=== PATIENT | male | born 1975 | race Caucasian/White ===

== ENCOUNTER 2024-04-28 14:14 | Outpatient (REF) | payer OTHER, SELFPAY ==
[2024-04-28 17:06] LABS: C Reactive Protein < 0.10 mg/dL (< or = 0.50)
[2024-04-28 17:13] LABS: Rheumatoid Factor < 13.0 IU/mL (<15.0)
[2024-04-28 17:41] LABS: Erythrocyte Sedimentation Rate 2 MM/HR (0-15)
[2024-04-30 05:09] LABS: Lyme Abs Screen <0.90 index
[2024-05-04 08:43] LABS: Anti Nuclear Antibody Screen NEGATIVE (NEGATIVE)
== END 2024-04-28 14:15 | disposition home or self-care (01) ==
LOC: HO.HMGCLDS 14:14
PROVIDERS: PCP Internal Medicine; Visit Provider Internal Medicine
DX: M25.50 Pain in unspecified joint (principal)
CPT/HCPCS: 36415; 85652; 86038; 86140; 86431; 86617; 86618

== ENCOUNTER 2024-08-10 15:10 | Outpatient (AMB) | payer OTHER, SELFPAY ==
--- NOTE | 2024-08-10 15:12 | A.OFFVIS_ITS ---
Intake Visit Reasons: erectile dysfunction Intake Note: New Patient presents for initial visit for erectile dysfunction Urology Medications: none Blood Thinner: none Certification And Selection Specialist Required: No Accompanied by: Self / Same As Patient Allergies No Known Allergies Allergy (Verified 08/10/24 16:07) Medication List - Last Reconciled 08/10/24 by ELIZABETH Mercado No Known Home Meds HPI Comments Details: Javier Mckenzie 49-year-old male patient of Dr. Springer. He presents to the office today as a new patient for erectile dysfunction. In discussion with the patient today reports symptoms have been present for over a year however feels they are worsening. He reports following up with his PCP at which time recommendations were made for urology referral for further assessment evaluation. He reports being able to obtain morning erections possibly 1 time per month. He discusses previously trialing Viagra and felt this was helpful however has recently changed insurance and prescription was too expensive. He discusses having trialed daily dosing of Cialis through [facility] and did not find this helpful. He also does report noting episodes of urinary urgency and frequency however describes these episodes as intermittent. We discussed at length potential causes of erectile dysfunction as well as further treatment options and risks and benefits of these treatment options. He discusses also following up with Allergy and immunology for ongoing pruritus he has been experi encing and will soon be undergoing allergy testing. In office urinalysis results reviewed with the patient today. He denies any previous trauma. He does report smoking recreational marijuana from time to time. He denies incontinence, nocturia, hematuria, dysuria, foul smelling urine, changes to urinary stream, flank pain, fever, and or chills. Review of Systems Const All systems reviewed & are unremarkable except as noted in HPI and below Physical Exam Const General: cooperative, healthy appearing, comfortable, no acute distress, well developed, alert and awake Orientation/consciousness: patient oriented x3 Limitations: no limitations HEENT Head: Yes normal to inspection, Yes normocephalic and Yes atraumatic Ears: hearing grossly normal bilaterally Eyes General: appearance normal, both eyes and all related structures Neck Neck: Yes normal visual inspection and Yes trachea midline Chest Chest palpation & inspection: normal inspection of the chest Resp Effort & Inspection: normal respiratory effort and able to speak in complete sentences Cardio Rate: regular rate GI Inspection: Yes normal to inspection General: Yes no CVA tenderness Back/Spine/Pelvis Back: no CVA tenderness Skin General skin exam: no rashes or lesions noted Neuro General: patient oriented x3 Extrem General: Yes normal to inspection Psych Appearance: grossly normal and well kempt Mental Status: mental status grossly normal Speech and movement: Normal speech and movement present and Clear speech present Affect: normal affect Attitude: cooperative Thought process: Normal thought process present Thought content: Normal thought content present Insight: Fair insight present (Psych) Judgement: Fair judgement present (Psych) Results AMB Urinalysis, Automated UA Leukoctes 0 Mauricio/uL Last Edit by [employer] on 08/10/24 15:29 UA Nitrite Last Edit by [employer] on 08/10/24 15:29 UA Urobilinogen 0.2 mg/dL Last Edit by [employer] on 08/10/24 15:29 UA Protein 15 mg/dL Last Edit by [employer] on 08/10/24 15:29 UA pH 5.5 Last Edit by [employer] on 08/10/24 15:29 UA Blood 10 Angel Luis/uL Last Edit by [employer] on 08/10/24 15:29 UA Specific [place] 1.030 Last Edit by [employer] on 08/10/24 15:29 UA Ketone Last Edit by [employer] on 08/10/24 15:29 UA Bilirubin 0 mg/dL Last Edit by [employer] on 08/10/24 15:29 UA Glucose 0 mg/dL Last Edit by [employer] on 08/10/24 15:29 Results Reviewed Results Reviewed: Laboratory Last Values Urine pH (Auto) 5.5 08/10/24 15:19 Specific [place] (Auto) 1.030 08/10/24 15:19 Urine Protein (Auto) 15 mg/dL 08/10/24 15:19 Glucose (UA)(Auto) 0 mg/dL 08/10/24 15:19 Urine Blood (Auto) 10 Angel Luis/uL 08/10/24 15:19 Urine Bilirubin (Auto) 0 mg/dL 08/10/24 15:19 Urine Urobilinogen (Auto) 0.2 mg/dL 08/10/24 15:19 Leukocyte Esterase (Auto) 0 Mauricio/uL 08/10/24 15:19 Assessment & Plan Assessment & Plan (1) Erectile dysfunction: Code(s): N52.9 - Male erectile dysfunction, unspecified Category: Medical Plan In office urinalysis results reviewed with the patient today; as noted above. We discussed at length potential causes of lower urinary tract symptoms patient was experiencing as well as erectile dysfunction; we discussed further treatment options of these urological conditions in risks and benefits of these treatment options. Prescription provided for p.r.n. Viagra We discussed potential near future penile Doppler We discussed bladder triggers/irritants. Will obtain PSA, LH, testosterone, and free testosterone for further assessment evaluation. We discussed lifestyle modifications to assist with ED. We also discussed and reviewed penile pump, ring, and prosthesis. Follow-up in 1-3 months with labs to be completed prior; or sooner with any issues, concerns, and or questions. Orders: Orders AMB Urinalysis Automated Today Z13.9 - Encounter for screening, unspecified Lutenizing Hormone Today N52.9 - Male erectile dysfunction, unspecified Urine Cytology Today Z13.9 - Encounter for screening, unspecified Testosterone, Free/Total Today N52.9 - Male erectile dysfunction, unspecified Prostate Specific Antigen Today N52.9 - Male erectile dysfunction, unspecified Medications: [facility] DR33 [id number] 100 mg PO ONCE 90 days PRN 40 tabs 1RF sexual activity Patient Instructions: The patient had an opportunity to ask questions regarding the treatment plan. All questions were answered. Physical exam, labs, and imaging were discussed and reviewed in detail. As well as risks, benefits, and discussion of treatment choices. No major barriers to understanding were identified. The patient expressed understanding and agreement with the above treatment plan. The patient was made aware they should contact our office by phone for worsening of their current condition, the appearance of new symptoms, or with any questions or concerns. Compliance is encouraged with any medications and follow up testing that is ordered. It is a privilege to be allowed the opportunity to participate in? your urological care.? Again, if you have any questions or concerns If you have any questions or concerns please do not hesitate to contact me. The office is [phone]. This note is constructed using voice recognition software. While every effort has been made to ensure accuracy editing computer publisher errors may have been included. Yours sincerely, ELIZABETH Mercado Coding Level of Care Code New Pt Level 4 (42576) Diagnoses Erectile dysfunction N52.9
== END 2024-08-10 16:01 | disposition home or self-care (01) ==
PROVIDERS: PCP Internal Medicine; Visit Provider Nurse Practitioner Family
DX: N52.9 Male erectile dysfunction, unspecified (principal); Z13.9 Encounter for screening, unspecified
CPT/HCPCS: 99204

== ENCOUNTER 2024-08-10 15:10 | Outpatient (REF) | payer OTHER, SELFPAY ==
[2024-08-10 16:35] LABS: Urine Cytology See Pathology rpt
== END 2024-08-10 15:11 | disposition home or self-care (01) ==
LOC: HO.LNP 15:10
PROVIDERS: PCP Internal Medicine; Visit Provider Nurse Practitioner Family
DX: N52.9 Male erectile dysfunction, unspecified (principal)
CPT/HCPCS: 81003; 88112; 99202

== ENCOUNTER 2024-10-09 09:48 | Outpatient (REF) | payer OTHER, SELFPAY ==
--- OUTSIDE RECORDS SUMMARY | 2024-10-09 10:58 | XMS_ITS | Clinical Summary ---
Author Organization [facility] Address [address] [place] [address] Care Team Providers Care Work Checker Name Role Phone Carolynn Tom MD Primary Care Provider [phone] Allergies Active Allergy Reactions Severity Noted Date Comments No Known Drug Allergies 10/11/2010 Medications Medication Sig Dispensed Refills Start Date End Date Status Multiple Vitamin (MULTI-DAY) Tab Take 1 Tab by mouth daily. 0 10/25/2016 Active sildenafil (VIAGRA) 100 MG tablet Take 1 Tablet by mouth at bedtime as needed for Erectile Dysfunction. 20 Tablet 0 08/17/2022 Active Active Problems Problem Noted Date Colon cancer screening 10/06/2021 Overview: ?polyps Father Genital herpes 12/31/2019 Hyperthyroidism 02/13/2018 Scoliosis 08/21/2012 Erectile dysfunction 05/09/2011 Acquired deviated nasal septum 1 Esophageal reflux 04/13/2011 Immunizations Name Administration Dates Next Due Influenza (>6 Months) Split Preservative Free ,04/13/2011 Influenza H1N1 Pandemic Flu Vaccine 06/20/2009 Tdap 10/30/2022,04/29/2013 Family History Medical History Relation Name Comments Hypertension Brother 1 Hypertension Father bladder cancer Melanoma Father Diabetes Maternal Grandfather Diabetes Maternal Grandmother glaucom a Leukemia Mother Crohn's Disease Paternal Grandfather Hypertension Paternal Grandmother Relation Name Status Comments Brother 1 Alive Brother 2 Alive Father Alive Maternal Grandfather Maternal Grandmother Mother Alive Paternal Grandfather Paternal Grandmother Social History Tobacco Use Types Packs/Day Years Used Date Smoking Tobacco: Never Smokeless Tobacco: Never Tobacco Cessation:Counseling Given: Not Answered Alcohol Use Standard Drinks/Week Comments Yes 0 (1 standard drink = 0.6 oz pur e alcohol) Sex Assigned at Date Recorded Not on file Last Filed Vital Signs Vital Sign Reading Time Taken Comments Blood Pressure 130/83 10/30/2022 1:55 PM EDT Pulse 98 10/30/2022 1:55 PM EDT Temperature 36.9 ??C (98.4 ??F) 10/30/2022 1:55 PM ED T Respiratory Rate 14 02/01/2022 2:06 PM EDT Oxygen Saturation 97% 02/19/2020 10:36 AM EDT Inhaled Oxygen Concentration - - Weight 70.3 kg (155 lb) 10/30/2022 1:55 PM EDT Height 177.8 cm (5' 10 ) 10/30/2022 1:55 PM EDT Body Mass Index 22.24 10/30/2022 1:55 PM EDT Plan of Treatment Health Maintenance Due Date Last Done Comments Covid-19 Vaccine (#1) 1975 SHINGLES VACCINE (1 of 2) 02/04/2024 BASELINE HEALTH EXAM 40-64 10/30/202410/30, 10/30/2022, 10/06/2021, Additional history exists INFLUENZA (Season Ended) 2025 04/29/2013, 01/2011 CHOLESTEROL SCREENING 10/31/2027 10/30/2022, 022 COLON CANCER SCREENING 09/26/2032 09/26/2022 DTAP/TDAP/TD (3 - Td or Tdap) 10/30/2032 10/30/2022, 04/29/2013 PNEUMOCOCCAL VACCINE FOR HIG H RISK PATIENTS (#1) 2039 Care Teams Work Checker Relationship Specialty Start Date End Date Carolynn Tom MD [address] [place], [place] [id number] PCP - General Internal Medicine 07/12/21
--- OUTSIDE RECORDS SUMMARY | 2024-10-09 10:58 | XMS_ITS | Encounter Summary ---
Author Organization [facility] Address [address] [place] [address] Care Team Providers Care Camera Engineer Name Role Phone Carolynn Tom MD Primary Care Provider + [phone] Reason for Visit * Reason Onset Date Comments Medication 03/13/2022 Encounter Details Date Type Department Care Team Description 03/13/2022 Refill Gastroenterology - [place] [address] [facility] [address] [place] [id number] Kiran Cadet MD [address] [facility] [address] [place] [address] Medication Social History Tobacco Use Types Packs/Day Years Used Date Smoking Tobacco: Never Smokeless Tobacco: Never Alcohol Use Standard Drinks/Week Comments Yes 0 (1 standard drink = 0.6 oz pur e alcohol) Sex Assigned at Date Recorded Not on file documented as of this encounter Plan of Treatment Not on file documented as of this encounter Visit Diagnoses Not on filedocumented in this encounter Care Teams Camera Engineer Relationship Specialty Start Date End Date Carolynn Tom MD [address] [place] [address] PCP - General Internal Medicine 07/12/21 documented as of this encounter
--- OUTSIDE RECORDS SUMMARY | 2024-10-09 10:58 | XMS_ITS | Encounter Summary ---
Author Organization [facility] Address [address] [place] [address] Care Team Providers Care Carton Filler Name Role Phone Carolynn Tom MD Primary Care Provider + [phone] Reason for Visit * Reason Onset Date Comments Medication 09/12/2022 Encounter Details Date Type Department Care Team Description 09/12/2022 Refill Gastroenterology - [place] [address] [facility] [address] [place] [id number] Kiran Cadet MD [address] [facility] [address] [place] [address] Medication Social History Tobacco Use Types Packs/Day [...] on filedocumented in this encounter Care Teams Carton Filler Relationship Specialty Start Date End Date Carolynn Tom MD [address] [place] [address] PCP - General Internal Medicine 07/12/21 documented as of this encounter
--- OUTSIDE RECORDS SUMMARY | 2024-10-09 10:58 | XMS_ITS | Encounter Summary ---
Author Organization [facility] Address [address] [place] [address] Care Team Providers Care Occupational Analyst Name Role Phone Maricarmen Beth MD Primary Care Provider Malinda Leger MD Primary Care Provider Unavailable Carolynn Tom MD Primary Care Provider [phone] Encounter Details Date Type Department Care Team Description 10/10/2018 Release of Information Medical Records [address] [place] [id number] Abstract, Provider Social History Tobacco Use Types Packs/Day Years Used Date Smoking Tobacco: Never Smokeless Tobacco: Never Alcohol Use Standard Drinks/Week Comments Yes 3 (1 standard drink = 0.6 oz pur e alcohol) Sex Assigned at Date Recorded Not on file documented as of this encounter Plan of Treatment Not on file documented as of this encounter Visit Diagnoses Not on filedocumented in this encounter Care Teams Occupational Analyst Relationship Specialty Start Date End Date Maricarmen Beth MD PCP - General Internal Medicine 10/06/18 06/18/19 Malinda Gallardo MD PCP - General Internal Medicine 06/19/1907/11 Carolynn Tom MD [address] [place] [id number] PCP - General Internal Medicine 07/12/21 documented as of this encounter
[2024-10-09 14:28] LABS: Prostate Specific Antigen 2.78 ng/mL (<0.05-4.0)
[2024-10-10 06:58] LABS: Lutenizing Hormone 6.7 mIU/mL (1.5-9.3)
[2024-10-17 14:09] LABS: Testosterone, Free 71.1 pg/mL (35.0-155.0); Testosterone, Total 679 ng/dL (250-1100)
== END 2024-10-09 09:49 | disposition home or self-care (01) ==
LOC: HO.HMGCLDS 09:48
PROVIDERS: PCP Internal Medicine; Visit Provider Nurse Practitioner Family
DX: N52.9 Male erectile dysfunction, unspecified (principal)
CPT/HCPCS: 36415; 83002; 84153; 84402; 84403

== ENCOUNTER 2024-10-21 12:20 | Outpatient (AMB) | payer OTHER, SELFPAY ==
--- NOTE | 2024-10-21 12:40 | A.OFFVIS_ITS ---
Intake Visit Reasons: 3m/PSA/Testo Intake Note: Patient presents today for follow up on: erectile dysfunction and labs PSA: 2.78 LH: 6.7 Testosterone: 679; Free Testosterone: 53 Urology Medications: Sildenafil Blood Thinner: none Ship Scraper Required: No Accompanied by: Self / Same As Patient Allergies No Known Allergies Allergy (Verified 10/21/24 13:28) Medication List - Last Reconciled 10/21/24 by ELIZABETH Mercado tadalafil (Cialis) 5 mg PO DAILY 90 days tadalafil (Cialis) 20 mg PO .PRN PRN 30 days HPI Comments Details: Javier Mckenzie 49-year-old male patient of Dr. Springer. He presents to the office today for follow-up. Of note, patient was seen approximately 2 months ago as a new patient for erectile dysfunction at which time a prescription was provided for p.r.n. Viagra prior to sexual activity and labs were drawn for further assessment evaluation. These results were reviewed and communicated with the patient today. PSA 10/30 2.8 LH 10/30 6.7 Testosterone: 10/30 679 Free testosterone 10/30 71.7 He discusses feeling Viagra was helpful in obtaining an erection that was adequate for penetration however he feels he experiences premature ejaculation. We discussed at length potential causes of erectile dysfunction as well as further treatment options and risks and benefits of these treatment options. In office urinalysis results reviewed with the patient today. He denies any previous trauma. He does report smoking recreational marijuana from time to time. He denies incontinence, nocturia, hematuria, dysuria, foul smelling urine, changes to urinary stream, flank pain, fever, and or chills. During last office visit microscopic hematuria was noted therefore urine was sent for cytology testing these results were communicated and reviewed with the patient today. Urine cytology 09/01: Negative for high-grade urothelial carcinoma. Plan For erectile dysfunction management, the patient will start on daily Cialis at 5 mg, with an additional 20 mg dose prior to planned sexual activity. An alternative plan is to combine 5mg daily Cialis with PRN Viagra, excluding concurrent use of both medications as PRN. We discussed lifestyle modifications and stress management to mitigate symptoms associated with erectile dysfunction. Follow-up is planned in three months to assess the effectiveness of the treatment and make any necessary adjustments. Patient was informed and verbally consented to the use of an ambient scribe for clinic note documentation during this visit. Discussion Notes I engaged the patient in a detailed discussion regarding his diagnosis of erectile dysfunction, focusing on premature ejaculation and the headaches associated with sildenafil. We explored the management options thoroughly, including the use of Cialis daily, with a supplemental dose before intercourse, and the alternative of combining a daily low dose of Cialis with as-needed Viagra. I provided reassurance by explaining the normal results of prior bloodwork and cytology, emphasizing there are no gonadal hormone imbalances. We reviewed lifestyle adaptations, including stress management, hydration, and sleep quality, which are vital for symptom relief. The patient understands the plan and consents to the proposed treatments, and we agreed that a follow-up in three months would be beneficial to evaluate the treatment's efficacy. Review of Systems Const All systems reviewed & are unremarkable except as noted in HPI and below Physical Exam Const General: cooperative, healthy appearing, comfortable, no acute distress, well developed, alert and awake Orientation/consciousness: patient oriented x3 Limitations: no limitations HEENT Head: Yes normal to inspection, Yes normocephalic and Yes atraumatic Ears: hearing grossly normal bilaterally Eyes General: appearance normal, both eyes and all related structures Neck Neck: Yes normal visual inspection and Yes trachea midline Chest Chest palpation & inspection: normal inspection of the chest Resp Effort & Inspection: normal respiratory effort and able to speak in complete sentences Cardio Rate: regular rate GI Inspection: Yes normal to inspection General: Yes no CVA tenderness Back/Spine/Pelvis Back: no CVA tenderness Skin General skin exam: no rashes or lesions noted Neuro General: patient oriented x3 Extrem General: Yes normal to inspection Psych Appearance: grossly normal and well kempt Mental Status: mental status grossly normal Speech and movement: Normal speech and movement present and Clear speech present Affect: normal affect Attitude: cooperative Thought process: Normal thought process present Thought content: Normal thought content present Insight: Fair insight present (Psych) Judgement: Fair judgement present (Psych) Results AMB Urinalysis, Automated UA Leukoctes 0 Mauricio/uL Last Edit by Carolina Malin on 10/21/24 12:51 UA Nitrite Negative Last Edit by Carolina Malin on 10/21/24 12:51 UA Urobilinogen 0.2 mg/dL Last Edit by Joele Kimo on 10/21/24 12:51 UA Protein 0 mg/dL Last Edit by Carolina Malin on 10/21/24 12:51 UA pH 8.0 Last Edit by Joele Kimo on 10/21/24 12:51 UA Blood 0 Angel Luis/uL Last Edit by Carolina Malin on 10/21/24 12:51 UA Specific [place] 1.010 Last Edit by Carolina Malin on 10/21/24 12:51 UA Ketone Negative Last Edit by Carolina Malin on 10/21/24 12:51 UA Bilirubin 0 mg/dL Last Edit by Carolina Malin on 10/21/24 12:51 UA Glucose 0 mg/dL Last Edit by Carolina Malin on 10/21/24 12:51 Results Reviewed Results Reviewed: Laboratory Last Values Urine pH (Auto) 8.0 10/21/24 12:49 Specific [place] (Auto) 1.010 10/21/24 12:49 Urine Protein (Auto) 0 mg/dL 10/21/24 12:49 Glucose (UA)(Auto) 0 mg/dL 10/21/24 12:49 Urine Ketones (Auto) Negative 10/21/24 12:49 Urine Blood (Auto) 0 Angel Luis/uL 10/21/24 12:49 Urine Nitrite (Auto) Negative 10/21/24 12:49 Urine Bilirubin (Auto) 0 mg/dL 10/21/24 12:49 Urine Urobilinogen (Auto) 0.2 mg/dL 10/21/24 12:49 Leukocyte Esterase (Auto) 0 Mauricio/uL 10/21/24 12:49 Assessment & Plan Assessment & Plan (1) Erectile dysfunction: Code(s): N52.9 - Male erectile dysfunction, unspecified Category: Medical Plan Recent PSA, LH, testosterone, and free testosterone results reviewed with the patient today; as noted above. In office urinalysis results reviewed with the patient today; as noted above. Patient currently denies any bothersome urinary issues. He reports be happy with current voiding parameters. We discussed at length potential causes of erectile dysfunction as well as further treatment options and risks and benefits of these treatment options. Will discontinue p.r.n. Viagra. Start Cialis 5 mg daily as discussed and prescribed. Prescription provided for p.r.n. dosing prior to sexual activity. We discussed lifestyle modifications for erectile dysfunction. Follow-up in 3 months; or sooner with any issues, concerns, and or questions. Orders: Orders AMB Urinalysis Automated Today Z13.9 - Encounter for screening, unspecified Medications: New tadalafil (Cialis) [id number] [facility] Member [id number] 5 mg PO DAILY 90 tabs 0RF 90 days tadalafil (Cialis) administer approximately 30min before sexual activity; do not use more than 1 dose per 24hrs [id number] [facility] Member [id number] 20 mg PO .PRN PRN 14 tabs 3RF sexual activity 30 days N52.9 - Male erectile dysfunction, unspecified Discontinued sildenafil (Viagra) [facility] DR33 [id number] Discontinued Reason: Doctor's Order 100 mg PO ONCE PRN 40 tabs 1RF sexual activity 90 days Patient Instructions: The patient had an opportunity to ask questions regarding the treatment plan. All questions were answered. Physical exam, labs, and imaging were discussed and reviewed in detail. As well as risks, benefits, and discussion of treatment choices. No major barriers to understanding were identified. The patient expressed understanding and agreement with the above treatment plan. The patient was made aware they should contact our office by phone for worsening of their current condition, the appearance of new symptoms, or with any questions or concerns. Compliance is encouraged with any medications and follow up testing that is ordered. It is a privilege to be allowed the opportunity to participate in? your urological care.? Again, if you have any questions or concerns If you have any questions or concerns please do not hesitate to contact me. The office is [phone]. This note is constructed using voice recognition software. While every effort has been made to ensure accuracy sandwich artist errors may have been included. Yours sincerely, Brooke Mendoza, [employer] SPECIALIST-BC Coding Level of Care Code Est Pt Level 4 (38968) Complex EM visit Add On G2211 Diagnoses Erectile dysfunction N52.9
== END 2024-10-21 13:15 | disposition home or self-care (01) ==
PROVIDERS: PCP Internal Medicine; Visit Provider Nurse Practitioner Family
DX: Z13.9 Encounter for screening, unspecified (principal); N52.9 Male erectile dysfunction, unspecified
CPT/HCPCS: 99214; G2211

== ENCOUNTER → 2024-10-21 12:20 | Outpatient (BNVA) | payer OTHER, SELFPAY | PROVIDERS: PCP Internal Medicine; Visit Provider Nurse Practitioner Family | DX: N52.9 Male erectile dysfunction, unspecified (principal); F52.4 Premature ejaculation; Z79.899 Other long term (current) drug therapy | CPT/HCPCS: 81003; 99212 ==

== ENCOUNTER 2025-04-05 14:37 | Outpatient (REF) | payer OTHER, SELFPAY | END 2025-04-05 14:38 | disposition home or self-care (01) | LOC: HO.LAB 14:37 | PROVIDERS: PCP Internal Medicine; Visit Provider Nurse Practitioner Family | DX: F52.4 Premature ejaculation (principal); N52.9 Male erectile dysfunction, unspecified; R31.29 Other microscopic hematuria; Z13.89 Encounter for screening for other disorder | CPT/HCPCS: 81003; 88112; 99212 ==

== ENCOUNTER 2025-04-05 14:37 | Outpatient (AMB) | payer OTHER, SELFPAY ==
--- NOTE | 2025-04-05 14:38 | A.OFFVIS_ITS ---
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 Springer. He presents to the office today for follow-up of his premature ejaculation and erectile dysfunction. In discussion with the patient today he reports since his last office visit here he has since from his fiancee. He reports he is not currently worried about his erectile dysfunction and premature ejaculation. He does feel daily dosing of tadalafil and p.r.n. dosing was helpful at the time however would like to continue with surveillance monitoring as he is not in an active relationship in does not wish to be at this time. He otherwise denies any bothersome urinary issues. He denies urinary urgency, urinary frequency, incontinence, nocturia, hematuria, dysuria, foul smelling urine, changes to urinary stream, flank pain, fever, and or chills. He is happy with his current voiding parameters. Previous labs are as follows as noted and trended below: PSA 10/30 2.8 LH 10/30 6.7 Testosterone: 10/30 679 Free testosterone 10/30 71.7 We discussed at length potential causes of erectile dysfunction and premature ejaculation as well as further treatment options and risks and benefits of these treatment options. In office urinalysis results reviewed with the patient today. He denies any previous trauma. During last office visit microscopic hematuria was noted therefore urine was sent for cytology testing these results were communicated and reviewed with the patient today. Urine cytology 09/01: Negative for high-grade urothelial carcinoma. He discusses being very active in his health and has recently started a new job and has found this helpful. 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 He otherwise offers no other issues or concerns at this time. Review of Systems Const All systems reviewed & are unremarkable except as noted in HPI and below Physical Exam Const General: cooperative, healthy appearing, comfortable, no acute distress, well developed, alert and awake Orientation/consciousness: patient oriented x3 Limitations: no limitations HEENT Head: Yes normal to inspection, Yes normocephalic and Yes atraumatic Ears: hearing grossly normal bilaterally Eyes General: appearance normal, both eyes and all related structures Neck Neck: Yes normal visual inspection and Yes trachea midline Chest Chest palpation & inspection: normal inspection of the chest Resp Effort & Inspection: normal respiratory effort and able to speak in complete sentences Cardio Rate: regular rate GI Inspection: Yes normal to inspection General: Yes no CVA tenderness Back/Spine/Pelvis Back: no CVA tenderness Skin General skin exam: no rashes or lesions noted Neuro General: patient oriented x3 Extrem General: Yes normal to inspection Psych Appearance: grossly normal and well kempt Mental Status: mental status grossly normal Speech and movement: Normal speech and movement present and Clear speech present Affect: normal affect Attitude: cooperative Thought process: Normal thought process present Thought content: Normal thought content present Insight: Fair insight present (Psych) Judgement: Fair judgement present (Psych) Results AMB Urinalysis, Automated UA Leukoctes 0 Mauricio/uL Last Edit by LYN Lambert on 04/05/25 14:56 UA Nitrite Negative Last Edit by Monica Merritt CCM on 04/05/25 14:56 UA Urobilinogen 0.2 mg/dL Last Edit by LYN Lambert on 04/05/25 14:5 6 UA Protein 15 mg/dL Last Edit by Monica Merritt CCM on 04/05/25 14:56 UA pH 6.0 Last Edit by Monica Merritt CCM on 04/05/25 14:56 UA Blood 10 Angel Luis/uL Last Edit by Monica Merritt CCM on 04/05/25 14:56 UA Specific [place] 1.025 Last Edit by LYN Lambert on 04/05/25 14: 56 UA Ketone Positive Last Edit by LYN Lambert on 04/05/25 14:56 UA Bilirubin 0 mg/dL Last Edit by LYN Lambert on 04/05/25 14:56 UA Glucose 0 mg/dL Last Edit by Monica Merritt CCM on 04/05/25 14:56 Results Reviewed Results Reviewed: Laboratory Last Values Urine pH (Auto) 6.0 04/05/25 14:55 Specific [place] (Auto) 1.025 04/05/25 14:55 Urine Protein (Auto) 15 mg/dL 04/05/25 14:55 Glucose (UA)(Auto) 0 mg/dL 04/05/25 14:55 Urine Ketones (Auto) Positive 04/05/25 14:55 Urine Blood (Auto) 10 Angel Luis/uL 04/05/25 14:55 Urine Nitrite (Auto) Negative 04/05/25 14:55 Urine Bilirubin (Auto) 0 mg/dL 04/05/25 14:55 Urine Urobilinogen (Auto) 0.2 mg/dL 04/05/25 14:55 Leukocyte Esterase (Auto) 0 Mauricio/uL 04/05/25 14:55 Assessment & Plan Assessment & Plan (1) Erectile dysfunction: Code(s): N52.9 - Male erectile dysfunction, unspecified Category: Medical (2) Premature ejaculation: Code(s): F52.4 - Premature ejaculation Category: Medical (3) Microscopic hematuria: Code(s): R31.29 - Other microscopic hematuria Category: Medical Plan In office urinalysis results reviewed with the patient today; as noted above; will send for urine cytology. We did discussed at length potential causes of premature ejaculation as well as erectile dysfunction; we discussed further treatment options and risks and benefits of these treatment options. Patient does not wish to undergo further treatment options at this time as he is not currently sexually active and or in a relationship in does not wish to be at this time. We did discussed potential causes of microscopic hematuria as well as further workup in risks and benefits of these interventions. He currently denies any bothersome urinary issues or concerns. He reports be happy with current voiding parameters. Follow-up PRN; or sooner with any issues, concerns, and or questions. Orders: Orders AMB Urinalysis Automated Today Z13.9 - Encounter for screening, unspecified Urine Cytology Today R31.29 - Other microscopic hematuria Patient Instructions: The patient had an opportunity to ask questions regarding the treatment plan. All questions were answered. Physical exam, labs, and imaging were discussed and reviewed in detail. As well as risks, benefits, and discussion of treatment choices. No major barriers to understanding were identified. The patient expressed understanding and agreement with the above treatment plan. The patient was made aware they should contact our office by phone for worsening of their current condition, the appearance of new symptoms, or with any questions or concerns. Compliance is encouraged with any medications and follow up testing that is ordered. It is a privilege to be allowed the opportunity to participate in? your urological care.? Again, if you have any questions or concerns If you have any questions or concerns please do not hesitate to contact me. The office is [phone]. This note is constructed using voice recognition software. While every effort has been made to ensure accuracy export manager errors may have been included. Yours sincerely, ELIZABETH Mercado Coding Level of Care Code Est Pt Level 4 (40964) Diagnoses Erectile dysfunction N52.9 Premature ejaculation F52.4 Microscopic hematuria R31.29 Time Spent (min) 45
== END 2025-04-05 15:33 | disposition home or self-care (01) ==
LOC: HO.HUSH 14:37
PROVIDERS: PCP Internal Medicine; Visit Provider Nurse Practitioner Family
DX: N52.9 Male erectile dysfunction, unspecified (principal); F52.4 Premature ejaculation; R31.29 Other microscopic hematuria; Z13.9 Encounter for screening, unspecified
CPT/HCPCS: 99214